=== PATIENT | male | born 1995 | race Caucasian/White ===

== ENCOUNTER 2021-10-31 12:50 | Emergency (ER) | payer BC ==
[2021-10-31 12:54] VITALS: BP 153/80; PULSE 99; RESP 18; TEMP 98.5
[2021-10-31] MEDS ORDERED: AMOXIC-POT CLAV 875-125MG 1 EACH TAB PO STA (13:15)
[2021-10-31] MEDS ORDERED: DIPH,PERTUS(ACELL)TETVAC-LF 0.5 ML VIAL IM ONE (13:16)
[2021-10-31] MEDS ORDERED: LIDOCAINE 1% INJ 10MG/ML (5 ML VIAL-PF) SQ ONE (13:16)
[2021-10-31] MEDS ORDERED: KETOROLAC 15 MG/ML 1 ML VIAL IM STA (13:16)
--- NOTE | 2021-10-31 13:20 | ED ---
Animal Bite HPI - General Chief Complaint: Animal Bite Stated Complaint: Dog Bite Time Seen by Provider: 10/31/21 12:55 Source: patient Mode of arrival: ambulatory Limitations: no limitations - History of Present Illness Initial Comments: Patient is a 26-year-old male who presents to the emergency department for evaluation of dog bite. Patient states he was breaking up a fight between his parents' dog and his brother's dog which caused him to get bit in his right pointer finger. Patient states both of the dogs are up-to-date vaccinations therefore he is not concerned about rabies. Patient endorses pain over the tip of the right pointer finger with laceration. Last tetanus was 2 years ago. - Related Data Home Medications Medication Instructions Recorded Confirmed Omeprazole 20 mg PO DAILY 10/31/21 10/31/21 Previous Rx's Medication Instructions Recorded Amoxic-Pot Clav 875-125Mg 1 tab PO BID 10 Days #20 tab 10/31/21 [Augmentin 875-125] HYDROcodone/APAP 7.5-325MG [Gardner 1 tab PO Q4HR PRN #18 tab 10/31/21 7.5-325] Allergies Allergy/AdvReac Type Severity Reaction Status Date / Time No Known Allergies Allergy Verified 10/31/21 13:51 Review of Systems ROS Statement: Those systems with pertinent positive or pertinent negative responses have been documented in the HPI. ROS Other: All systems not noted in ROS Statement are negative. Past Medical History Past Medical History: No Reported History History of Any Multi-Drug Resistant Organisms: None Reported Past Surgical History: No Surgical Hx Reported Additional Past Surgical History / Comment(s): left arm. Past Psychological History: No Psychological Hx Reported Smoking Status: Never smoker Past Alcohol Use History: None Reported Past Drug Use History: None Reported General Exam Limitations: no limitations General appearance: alert, in no apparent distress Head exam: Present: atraumatic, normocephalic, normal inspection Eye exam: Present: normal appearance, PERRL, EOMI. Absent: scleral icterus, conjunctival injection, periorbital swelling Respiratory exam: Present: normal lung sounds bilaterally. Absent: respiratory distress, wheezes, rales, rhonchi, stridor Cardiovascular Exam: Present: regular rate, normal rhythm, normal heart sounds. Absent: systolic murmur, diastolic murmur, rubs, gallop, clicks Extremities exam: Present: other (3 cm irregular laceration in palmar region of right pointer finger. Neurovascularly intact) Neurological exam: Present: alert, oriented X3, CN II-XII intact Psychiatric exam: Present: normal affect, normal mood Skin exam: Present: warm, dry, intact, normal color. Absent: rash Course Vital Signs 10/31/21 12:51 Temperature 98.5 F Pulse Rate 99 Respiratory 18 Rate Blood Pressure 153/80 O2 Sat by Pulse 96 Oximetry Procedures - Laceration Laceration #1 Consent Obtained: verbal consent Indication: laceration Site: other (right pointer finger) Description: irregular Depth: simple, single layer Anesthetic Used: lidocaine 1% Anesthesia Technique: nerve block Pre-repair: wound explored, irrigated extensively, deep structures intact Type of Sutures: nylon Size of Sutures: 5-0 Number of Sutures: 2 Technique: simple, interrupted Patient Tolerated Procedure: well, no complications - Orthopedic Splinting/Casting Injury #1 Side: right Upper Extremity Injury Location: finger (second ) Upper Extremity Immobilizer: aluminum form splint Medical Decision Making - Medical Decision Making This is a 26-year-old male who presents for evaluation of dog bite. Thorough history and examination were performed. There is a 3 cm irregular laceration in the palmar region of the right pointer finger. There is no obvious deformity, swelling, or erythema. Neurovascularly intact. Patient is very adamant that he needs stitches despite education of closure risks after dog bites. With possible strong force of dog bite I did obtain a right hand x-ray for rule out fracture which showed an acute fracture of the second digit distal phalanx tuft with minimal displacement. Case discussed with commercial credit specialist Dr. Tian. This laceration has caused a skin flap in the finger which may benefit from a stitch or 2. Dr. Tian was agreeable to soaking the finger in Betadine and placing 2 loose sutures. The laceration was cleaned thoroughly. Deep structures intact. Was well approximated with 2 loose sutures. Patient tolerated the procedure well without complication. Finger splint was placed. Patient referred to Dr. Tian and is instructed to follow-up first thing in the morning. He understands that with open fracture there is risk of infection. He will be discharged with Augmentin. First dose given in emergency department. Strict return parameters discussed. Patient verbalizes understanding and is agreeable to this plan. Dr. Lawrence is my attending. Disposition Clinical Impression: Dog bite Disposition: HOME SELF-CARE Condition: Good Instructions (If sedation given, give patient instructions): Animal Bite (ED) Additional Instructions: Take medication as directed. Keep wound clean and dry. Leave uncovered so bacteria are able to leave wound. Call commercial credit specialist first thing in the morning to schedule an appointment. Keep splint on until orthopedic evaluation. Follow-up with primary care provider in one to 2 days. Return for suture removal in 7-10 days. Report back to the emergency department if you experience new, concerning, or worsening symptoms. Prescriptions: Amoxic-Pot Clav 875-125Mg [Augmentin 875-125] 1 tab PO BID 10 Days #20 tab HYDROcodone/APAP 7.5-325MG [Gardner 7.5-325] 1 tab PO Q4HR PRN #18 tab PRN Reason: Pain Is patient prescribed a controlled substance at d/c from ED?: No Referrals: Charly Lopez MD [Primary Care Provider] - 1-2 days Irineo Tian MD [STAFF PHYSICIAN] - 1-2 days Time of Disposition: 13:22
--- NOTE | 2021-10-31 13:40 | XR ---
EXAMINATION TYPE: XR hand complete RT DATE OF EXAM: 10/31/2021 1:29 PM INDICATION: Patient age:Male; 26 years old; Reason for study: dog bite; COMPARISON: None TECHNIQUE: Frontal, lateral and oblique views of the right hand were obtained. FINDINGS: Acute fracture through the distal phalanx tuft of the second digit there is minimal displac ement. No additional fractures identified. There is mild soft tissue swelling. IMPRESSION: Acute fracture of the second digit distal phalanx tuft with minimal displacement.
== END 2021-10-31 14:34 | disposition home or self-care (01) ==
LOC: EC 12:50
DX: S61.219A Laceration without foreign body of unspecified finger without damage to nail, initial encounter (principal); W54.0XXA Bitten by dog, initial encounter
CPT/HCPCS: 96372; 99283; 73130; J2001; J1885; 12006